=== PATIENT | male | born 1950 | race Caucasian/White ===

== ENCOUNTER → 2016-05-06 | Outpatient (CLI) | payer BC ==
[~2016-05-06] MED LIST: ALLO100T PO; ASPI325T32 PO; ATOR40TA68 PO; DILT120C77 PO; ESZO3TAB12 PO; HYD25 PO; INSU100C SC; INSU300I SQ; LATA2.5D2 OPHTHALMIC; METF-480 PO; OXYC-481 PO; RAMI10CA35 PO; TRAM50TA2 PO
--- NOTE | 2016-05-06 10:17 | RADRPT ---
PROCEDURE: XR Right hip and pelvis. CLINICAL INDICATION: Right hip pain. Pelvic pain. Postop. TECHNIQUE: Three views. Frontal pelvis. Frontal and lateral right hip. COMPARISON: 02/03/2016. FINDINGS: There is no fracture or dislocation. The soft tissues are normal. There is a right hip total arthroplasty which appears satisfactory. There are moderate degenerative changes of the left hip with joint space narrowing and osteophytes. There is no lytic or blastic lesion. The upper pelvis is not completely included on the image. IMPRESSION: 1. Satisfactory postoperative appearance of the right hip. 2. Moderate degenerative changes of the left hip. RPTAT: QQ .Twan Mccloud MD, MD Date Time Electronically viewed and signed by .Twan Mccloud MD, MD on 05/06/2016 10:17 .R/
== END | disposition home or self-care (01) ==
LOC: HKI 08:29
PROVIDERS: ATTEND Orthopaedic Surgery
DX: Z47.1 Aftercare following joint replacement surgery (principal); Z96.641 Presence of right artificial hip joint
CPT/HCPCS: 73502; G0463